=== PATIENT | female | born 1935 | race Caucasian/White ===

== ENCOUNTER 2021-01-23 14:11 | Outpatient (CLI) | payer MEDICARE ==
[~2021-01-23 14:11] MED LIST: BISA-49 PO; CALC-138 PO; CHOL20002 PO; CLOP75TA PO; CLOP75TA52 PO; GLUC500T11 PO; LEVO25TA4 PO; OLME20TA17 PO; OMEP40CA8 PO; POTASSIUM PO; SIMV40TA20 PO; SOLI10TA2 PO; VITA150T PO
== END 2021-01-23 23:59 | disposition home or self-care (01) ==
LOC: RAD 14:11
PROVIDERS: ATTEND Nurse Practitioner Family
DX: R06.02 Shortness of breath (principal)
CPT/HCPCS: 71046